=== PATIENT | female | born 1995 | race Caucasian/White ===

== ENCOUNTER 2021-09-30 20:24 | Emergency (ER) | payer SELFPAY ==
[~2021-09-30] VITALS: Ht 149.8 cm; Wt 38.4 kg
[2021-09-30] MEDS ORDERED: ONDANSETRON 4 MG/2 ML (SDV) Z0FRAN IVP ONE (20:45)
[2021-09-30] MEDS ORDERED: KETOROLAC 30 MG/ML VIAL IVP ONE (20:45)
--- NOTE | 2021-09-30 20:48 | ED GI ---
General Chief Complaint: Abdominal/GI Problems Stated Complaint: L SIDE ABD PAIN/CRAMPING Source of Information: Patient Exam Limitations: No Limitations History of Present Illness Date Seen by Provider: Sep 30, 2021 Time Seen by Provider: 20:29 Initial Comments 25-year-old female with past medical history of kidney stones coming in due to left flank/abdominal pain with some nausea. Started a few hours ago. Says it feels somewhat similar to kidney stones but now slightly different. Pain is intermittent, sharp, moderate. Took ibuprofen which did help. Does have some mild dysuria as well. Denies any vaginal discharge. LMP was 1 week ago. Otherwise denying any chest pain, shortness of breath, fever, vomiting, diarrhea, hematuria, rash, or any other concerns. Allergies and Home Medications Allergies Coded Allergies: No Known Drug Allergies (Unverified , 09/30/21) Patient Home Medication List Home Medication List Reviewed: Yes Hyoscyamine Sulfate (Levsin-Sl) 0.125 Mg Tab.subl, 0.125 MG SL Q6H PRN for abdominal spasms Prescribed by: KARLI MARY on 09/30/212147 Ondansetron (Ondansetron Odt) 4 Mg Tab.rapdis, 4 MG PO Q6H PRN for NAUSEA/VOMITING-1ST LINE Prescribed by: KARLI MARY on 09/30/212147 Review of Systems Review of Systems Constitutional: No chills EENTM: No Blurred Vision Respiratory: Denies Cough Cardiovascular: Denies Chest Pain Gastrointestinal: Nausea Genitourinary: Burning Musculoskeletal: no symptoms reported Skin: no symptoms reported Psychiatric/Neurological: No Symptoms Reported Endocrine: No Symptoms Reported Hematologic/Lymphatic: No Symptoms Reported All Other Systems Reviewed Negative Unless Noted: Yes Past Nhbhmlm-Frpzuu-Becocg Hx Patient Social History Tobacco Use?: Yes Tobacco type used: Cigarettes Substance use?: Yes Substance type: Marijuana Past Medical History Surgeries: Yes (lithotripsy, ureteral stents) Physical Exam Vital Signs Vital Signs - First Documented 09/30/21 20:32 Temp 36.9 Pulse 102 Resp 18 B/P (MAP) 127/92 (104) Pulse Ox 100 O2 Delivery Room Air Capillary Refill : Height/Weight/BMI Height: '" Weight: lbs. oz. kg; BMI Method: General Appearance: WD/WN, no apparent distress HEENT: PERRL/EOMI, normal ENT inspection, pharynx normal Neck: non-tender, full range of motion, supple Respiratory: chest non-tender, lungs clear, normal breath sounds, no respiratory distress, no accessory muscle use Cardiovascular: regular rate, rhythm, no edema, no murmur Gastrointestinal: normal bowel sounds, non tender, soft; No distended, No guarding, No rebound Extremities: normal range of motion, non-tender, normal inspection, no pedal edema, no calf tenderness, normal capillary refill Back: normal inspection, no CVA tenderness, no vertebral tenderness Neurologic/Psychiatric: no motor/sensory deficits, alert, normal mood/affect Skin: normal color, warm/dry Lymphatic: no adenopathy Progress/Results/Core Measures Results/Orders Lab Results Laboratory Tests Test 09/30/21 20:35 09/30/21 20:50 Range/Units Urine Color YELLOW Urine Clarity CLEAR Urine pH 8.5 5-9 Urine Specific Bronson 1.010 L 1.016-1.022 Urine Protein NEGATIVE NEGATIVE Urine Glucose (UA) NEGATIVE NEGATIVE Urine Ketones NEGATIVE NEGATIVE Urine Nitrite NEGATIVE NEGATIVE Urine Bilirubin NEGATIVE NEGATIVE Urine Urobilinogen 0.2 < = 1.0 MG/DL Urine Leukocyte Esterase NEGATIVE NEGATIVE Urine RBC (Auto) 1+ H NEGATIVE Urine RBC NONE /HPF Urine WBC RARE /HPF Urine Squamous Epithelial Cells 2-5 /HPF Urine Crystals NONE /LPF Urine Bacteria TRACE /HPF Urine Casts NONE /LPF Urine Mucus NEGATIVE /LPF Urine Culture Indicated NO White Blood Count 6.8 4.3-11.0 10^3/uL Red Blood Count 4.41 3.80-5.11 10^6/uL Hemoglobin 13.3 11.5-16.0 g/dL Hematocrit 39 35-52 % Mean Corpuscular Volume 89 80-99 fL Mean Corpuscular Hemoglobin 30 25-34 pg Mean Corpuscular Hemoglobin Concent 34 32-36 g/dL Red Cell Distribution Width 12.5 10.0-14.5 % Platelet Count 258 130-400 10^3/uL Mean Platelet Volume 10.4 9.0-12.2 fL Immature Granulocyte % (Auto) 0 % Neutrophils (%) (Auto) 52 42-75 % Lymphocytes (%) (Auto) 35 12-44 % Monocytes (%) (Auto) 9 0-12 % Eosinophils (%) (Auto) 3 0-10 % Basophils (%) (Auto) 1 0-10 % Neutrophils # (Auto) 3.5 1.8-7.8 10^3/uL Lymphocytes # (Auto) 2.3 1.0-4.0 10^3/uL Monocytes # (Auto) 0.6 0.0-1.0 10^3/uL Eosinophils # (Auto) 0.2 0.0-0.3 10^3/uL Basophils # (Auto) 0.1 0.0-0.1 10^3/uL Immature Granulocyte # (Auto) 0.0 0.0-0.1 10^3/uL Sodium Level 140 135-145 MMOL/L Potassium Level 3.4 L 3.6-5.0 MMOL/L Chloride Level 104 98-107 MMOL/L Carbon Dioxide Level 25 21-32 MMOL/L Anion Gap 11 5-14 MMOL/L Blood Urea Nitrogen 8 7-18 MG/DL Creatinine 0.87 0.60-1.30 MG/DL Estimat Glomerular Filtration Rate 96 BUN/Creatinine Ratio 9 Glucose Level 75 70-105 MG/DL Calcium Level 8.6 8.5-10.1 MG/DL Corrected Calcium 8.4 L 8.5-10.1 MG/DL Total Bilirubin 0.3 0.1-1.0 MG/DL Aspartate Amino Transf (AST/SGOT) 30 5-34 U/L Alanine Aminotransferase (ALT/SGPT) 16 0-55 U/L Alkaline Phosphatase 74 40-136 U/L Total Protein 7.1 6.4-8.2 GM/DL Albumin 4.3 3.2-4.5 GM/DL Lipase 19 8-78 U/L My Orders Orders - KARLI MARY MD Ed Iv/Invasive Line Start (09/30/21 20:45) Urine Bedside (09/30/21 20:45) Cbc With Automated Diff (09/30/21 20:45) Comprehensive Metabolic Panel (09/30/21 20:45) Lipase (09/30/21 20:45) Ua Culture If Indicated (09/30/21 20:45) Ct Abdomen/Pelvis Wo (09/30/21 20:45) Ketorolac Injection (Toradol Injection) (09/30/21 20:45) Ondansetron Injection (Zofran Injectio (09/30/21 20:45) Medications Given in ED Current Medications Medications Dose Ordered Sig/Sonal Route Start Time Stop Time Status Last Admin Dose Admin Ketorolac Tromethamine 15 mg ONCE ONCE IVP 09/30/21 20:45 09/30/21 20:47 DC 09/30/21 20:55 15 MG Ondansetron HCl 4 mg ONCE ONCE IVP 09/30/21 20:45 09/30/21 20:47 DC 09/30/21 20:55 4 MG Vital Signs/I&O 09/30/21 20:32 Temp 36.9 Pulse 102 Resp 18 B/P (MAP) 127/92 (104) Pulse Ox 100 O2 Delivery Room Air Progress Progress Note : Progress Note 25-year-old female with above history coming in due to left-sided abdominal discomfort and left flank pain. ABCs were intact and vitals were stable on presentation. Physical exam with very mild tenderness, but when distracted she does not show any discomfort with palpation of her abdomen. An IV was placed and she was given Toradol for pain control as well as Zofran for nausea. Basic labs obtained including CBC, CMP, lipase, urinalysis, urine test. Urinalysis with 1+ blood but otherwise labs unremarkable including negative test. CT abdomen and pelvis ordered and was significant for large amount of stool in her rectum and colon. Discussed this with the patient. Repeat abdominal exam reassuring. I believe she is stable for discharge with outpatient follow-up. She was sent home with strict return precautions. Diagnostic Imaging Diagonstic Imaging: CT (abd/pelv) Comments [facility], [place] NAME: SHANTEL ALANIZ [facility] REC#: [id number] PT STATUS: REG ER : 1995 PHYSICIAN: KARLI MARY MD ADMIT DATE: 09/30/21/ER FS Draft Date of Exam:09/30/21 CT ABDOMEN/PELVIS WO PROCEDURE: CT abdomen and pelvis without contrast. TECHNIQUE: Multiple contiguous axial images were obtained through the abdomen and pelvis without the use of intravenous contrast. Auto Exposure Controls were utilized during the CT exam to meet ALARA standards for radiation dose reduction. INDICATION: Left-sided abdominal pain. Vaginal pain. Left flank pain. COMPARISON: None FINDINGS: Lung bases are clear. The heart is normal in size. The liver demonstrates no focal lesions. Cholecystectomy clips are noted. The spleen appears normal. The pancreas is normal. The adrenal glands appear normal. There are multiple nonobstructing calculi in the right kidney, about 2 mm in size. The left kidney also demonstrates a punctate nonobstructive calculus. The ureters are somewhat difficult to follow due to the paucity of fat, but no calculi are seen along the course. No calculi are seen in the urinary bladder. The appendix is normal. There is moderate stool in the colon. No free fluid or free air is seen. The bowel loops are nondistended without obstruction. No acute osseous abnormality is seen. IMPRESSION: 1. Multiple nonobstructing calculi in the kidneys bilaterally. No obstructing calculi or hydronephrosis is seen. 2. Moderate stool in the colon, please correlate with any history of constipation. Dictated on workstation # [id number] Dict: 09/30/212124 Trans: 09/30/212132 [facility] [id number] Interpreted by: MAUREEN VASQUES MD Electronically signed by: Departure Impression Primary Impression: Abdominal pain Qualified Codes: R10.9 - Unspecified abdominal pain Disposition: HOME, SELF-CARE Condition: Stable Departure-Patient Inst. Decision time for Depature: 21:45 Referrals: [facility]/MELINDA BOND,LOCAL PHYSICIAN (PCP) Primary Care Physician Patient Instructions: Abdominal Pain, Adult ED Add. Discharge Instructions: Your labs look good, and your CT scan does show that you have a lot of stool in your colon which typically means someone is very constipated. I recommend buying [id number] MiraLAX and taking that a couple times a day to help clean out your bowels and see if that helps. I sent a spasm medication to your pharmacy as well which can help with abdominal pain. You do have some blood in your urine which sometimes means you could have passed a kidney stone and that could have been the cause of your pain I do want you to schedule an appointment with [facility] which is just next[place]door to follow-up, and they can be your primary care provider. They also do assistance with medications for paying Scripts Hyoscyamine Sulfate (Levsin-Sl) 0.125 Mg Tab.subl 0.125 MG SL Q6H PRN for abdominal spasms for 5 Days, #20 TAB Prov: KARLI MARY MD 09/30/21 Ondansetron (Ondansetron Odt) 4 Mg Tab.rapdis 4 MG PO Q6H PRN for NAUSEA/VOMITING-1ST LINE for 5 Days, #20 TAB Prov: KARLI MARY MD 09/30/21 KARLI MARY MD Sep 30, 2021 20:48
[2021-09-30 21:04] LABS: BASOPHILS # (AUTO) 0.1 10^3/uL (0.0-0.1); BASOPHILS % (AUTO) 1 % (0-10); EOSINOPHILS # (AUTO) 0.2 10^3/uL (0.0-0.3); EOSINOPHILS % (AUTO) 3 % (0-10); HEMATOCRIT 39 % (35-52); HEMOGLOBIN 13.3 g/dL (11.5-16.0); LYMPHOCYTES # (AUTO) 2.3 10^3/uL (1.0-4.0); LYMPHOCYTES % (AUTO) 35 % (12-44); MEAN CORPUSCULAR HEMOGLOBIN 30 pg (25-34); MEAN CORPUSCULAR HGB CONC 34 g/dL (32-36); MEAN CORPUSCULAR VOLUME 89 fL (80-99); MEAN PLATELET VOLUME 10.4 fL (9.0-12.2); MONOCYTES # (AUTO) 0.6 10^3/uL (0.0-1.0); MONOCYTES % (AUTO) 9 % (0-12); NEUTROPHILS # (AUTO) 3.5 10^3/uL (1.8-7.8); NEUTROPHILS % (AUTO) 52 % (42-75); PLATELET COUNT 258 10^3/uL (130-400); WHITE BLOOD COUNT 6.8 10^3/uL (4.3-11.0)
[2021-09-30 21:05] LABS: BILIRUBIN,URINE NEGATIVE (NEGATIVE); CLARITY,URINE CLEAR; COLOR,URINE YELLOW; GLUCOSE, URINE (UA) NEGATIVE (NEGATIVE); KETONES,URINE NEGATIVE (NEGATIVE); LEUKOCYTE ESTERASE ,URINE NEGATIVE (NEGATIVE); NITRITE,URINE NEGATIVE (NEGATIVE); PH,URINE 8.5 (5-9); PROTEIN,URINE NEGATIVE (NEGATIVE)
[2021-09-30 21:10] LABS: BACTERIA,URINE TRACE /HPF; WBC,URINE RARE /HPF
[2021-09-30 21:27] LABS: ALBUMIN 4.3 GM/DL (3.2-4.5); BILIRUBIN,TOTAL 0.3 MG/DL (0.1-1.0); CALCIUM 8.6 MG/DL (8.5-10.1); CREATININE SERUM 0.87 MG/DL (0.60-1.30); POTASSIUM 3.4 MMOL/L (3.6-5.0); TOTAL PROTEIN 7.1 GM/DL (6.4-8.2)
--- NOTE | 2021-09-30 21:33 | Diagnostic Imaging Report ---
PROCEDURE: CT abdomen and pelvis without contrast. TECHNIQUE: Multiple contiguous axial images were obtained through the abdomen and pelvis without the use of intravenous contrast. Auto Exposure Controls were utilized during the CT exam to meet ALARA standards for radiation dose reduction. INDICATION: Left-sided abdominal pain. Vaginal pain. Left flank pain. COMPARISON: None FINDINGS: Lung bases are clear. The heart is normal in size. The liver demonstrates no focal lesions. Cholecystectomy clips are noted. The spleen appears normal. The pancreas is normal. The adrenal glands appear normal. There are multiple nonobstructing calculi in the right kidney, about 2 mm in size. The left kidney also demonstrates a punctate nonobstructive calculus. The ureters are somewhat difficult to follow due to the paucity of fat, but no calculi are seen along the course. No calculi are seen in the urinary bladder. The appendix is normal. There is moderate stool in the colon. No free fluid or free air is seen. The bowel loops are nondistended without obstruction. No acute osseous abnormality is seen. IMPRESSION: 1. Multiple nonobstructing calculi in the kidneys bilaterally. No obstructing calculi or hydronephrosis is seen. 2. Moderate stool in the colon, please correlate with any history of constipation. Dictated by: Dictated on workstation # [id number]
[2021-09-30] MEDS ORDERED: HYOS0.1283 SL (21:48)
[2021-09-30] MEDS ORDERED: ONDA4TAB11 PO (21:48)
[2021-09-30 21:53] VITALS: BP 116/76
== END 2021-09-30 21:53 | disposition home or self-care (01) ==
LOC: ER FS 20:26
DX: R10.9 Unspecified abdominal pain (principal); Z72.0 Tobacco use
CPT/HCPCS: 36415; 74176; 80053; 81000; 83690; 84703; 85025